=== PATIENT | male | born 1950 | race Caucasian/White ===

== ENCOUNTER → 2017-09-08 | Outpatient (CLI) | payer OTHER, MEDICARE | LOC: CIMAGING 07:10 | PROVIDERS: ATTEND Internal Medicine Endocrinology, Diabetes & Metabolism | DX: R10.30 Lower abdominal pain, unspecified (principal); K40.90 Unilateral inguinal hernia, without obstruction or gangrene, not specified as recurrent | CPT/HCPCS: 76882-PO ==

== ENCOUNTER 2017-10-23 10:28 | Observation (INO) | payer OTHER, MEDICARE ==
[2017-10-23] MEDS ORDERED: PANTOPRAZOLE SODIUM 80 MG in NS 100 ML IV ONE ×2 (10:54→12:00)
[2017-10-23 11:27] LABS: % IMMATURE GRANULYOCYTES 0.4 % (0.0-1.1); ABSOLUTE IMMATURE GRANULOCYTES 0.04 10^3/uL (0.00-0.10); ADD DIFF? NO; ADD MORPH? NO; ADD SCAN? NO; ATYPICAL LYMPHOCYTE FLAG 0 (0-99); FRAGMENT RBC FLAG 0 (0-99); HEMATOCRIT 32.5 % (40.0-51.0); HEMOGLOBIN 11.1 g/dL (13.7-17.5); LEFT SHIFT FLG 10 (0-99); LIPEMIA HEMOLYSIS FLAG 90 (0-99); MEAN CELL HEMOGLOBIN 33.5 pg (27.9-34.1); MEAN CELL HEMOGLOBIN CONCENTR. 34.2 g/dL (32.4-36.7); MEAN CELL VOLUME 98.2 fL (81.5-99.8); MEAN PLATELET VOLUME 9.6 fL (8.7-11.7); PLATELET CLUMPS FLAG 0 (0-99); PLATELET COUNT 128 10^3/uL (150-400); RED BLOOD CELL COUNT 3.31 10^6/uL (4.40-6.38); RED CELL DISTRIBUTION WIDTH 15.1 % (11.5-15.2)
[2017-10-23 11:37] LABS: INR 1.03 (0.83-1.16); PROTIME(PATIENT) 13.7 SEC (12.0-15.0)
[2017-10-23 11:38] LABS: APTT 22.1 SEC (23.0-38.0)
[2017-10-23 11:41] LABS: ALANINE AMINOTRANSFERASE 32 IU/L (21-72); ALBUMIN 3.5 g/dL (3.5-5.0); ALKALINE PHOSPHATASE 47 IU/L (38-126); ANION GAP 15 mEq/L (8-16); ASPARTATE AMINOTRANSFERASE 22 IU/L (17-59); BILIRUBIN,TOTAL 0.5 mg/dL (0.1-1.4); BILIRUBIN-CONJUGATED 0.2 mg/dL (0.0-0.5); BILIRUBIN-UNCONJUGATED 0.3 mg/dL (0.0-1.1); CALCIUM 9.2 mg/dL (8.5-10.4); CARBON DIOXIDE 22 mEq/l (22-31); CHLORIDE 103 mEq/L (97-110); CREATININE 1.4 mg/dL (0.7-1.3); GLOMERULAR FILTRATION RATE 50; GLUCOSE 93 mg/dL (70-100); POTASSIUM 4.6 mEq/L (3.5-5.2); SODIUM 140 mEq/L (134-144); TOTAL PROTEIN 6.3 g/dL (6.3-8.2)
[2017-10-23 12:23] LABS: COLOR YELLOW; LEUKOCYTE ESTERASE,URINE NEGATIVE (NEGATIVE); NITRITE,URINE NEGATIVE (NEGATIVE); PH,URINE 5.5 (5.0-7.5)
[2017-10-23 12:32] LABS: RBC,URINE NONE SEEN /hpf (0-3); WBC,URINE NONE SEEN /hpf (0-3)
[2017-10-23] MEDS ORDERED: PANTOPRAZOLE SODIUM 40 MG VIAL IVP ONE (12:57)
--- NOTE | 2017-10-23 13:05 | EDPHY ---
H & P Time Seen by Provider: 10/23/17 10:54 HPI/ROS: HPI Black stool. 67-year-old male by private vehicle with his . I received a call from his primary care physician Dr. Davies. The patient has a history of esophageal and colon cancer. He has a colostomy. He had an uncomplicated right inguinal hernia repair done on by his general surgeon at [facility] named Dr. Henao. He reports having black stool output in his colostomy bag starting about 24 hr ago. He does have a prior history of a gastrointestinal bleed which resulted in bright red blood in his colostomy bag 1-[address] Yusuf performed endoscopy on him and his bleeding was attributed to an ischemic colitis. He denies any significant abdominal pain. He has not had any vomiting. No lightheadedness. ROS: Constitutional: No fever, no chills. No weakness. Eyes: No discharge. No changes in vision. ENT: No sore throat. No nasal congestion or rhinorrhea. Respiratory: No cough. No shortness of breath. Cardiac: No chest pain, no palpitations. Gastrointestinal: No abdominal pain, no vomiting, no diarrhea. Genitourinary: No hematuria. No dysuria or increased frequency with urination. Musculoskeletal: No back pain. No neck pain. No myalgias or arthralgias. Skin: No rashes. Neurological: No headache. No focal weakness or altered sensation. Past medical history: As above. No history of chronic NSAID use. Social history: Here with his . Nonsmoker. No alcohol. Physical Exam: General Appearance: Alert, no distress. This patient is responding to questions appropriately and in full sentences. This patient appears well- hydrated and well-nourished. Eyes: Pupils equal and round no pallor or injection. No lid edema, erythema or injection. Respiratory: There are no retractions, lungs are clear to auscultation with good air movement bilaterally. Cardiovascular: Regular rate and rhythm. No murmur. Gastrointestinal: Abdomen is soft , mildly distended, left mid abdominal colostomy insertion site is clean and dry without evidence of infection, there is black tarry stool in the colostomy collection bag, he has swollen right inguinal area consistent with recent surgery, there is no associated warmth or erythema. There is ecchymosis that migrates down into his testicles which are ecchymotic and swollen but nontender, bowel sounds normal. No focal tenderness at McBurney's point. No Vasquez sign. Neurological: Motor sensory function is grossly intact. Cranial nerves are normal. Gait is normal. Skin: Warm and dry, no rashes. Musculoskeletal: Neck is supple and nontender. Extremities are symmetrical. All joints range without pain or impingement. Psychiatric: No agitation. No depression. Database: EKG: Imaging: Procedures: Emergency department course: Vital signs reviewed and are normal. IV x2 placed. Patient typed and screened. He was started on IV normal saline with 500 cc to be given over the next hour. He was started on IV Protonix 80 mg bolus followed by a Protonix drip. Stool from colostomy bag is Hemoccult positive. 1:10 p.m., spoke with hospitalist, Dr. Belinda Valerio. She accepts this patient for admission. 1:15 p.m., spoke with on-call endodontic assistant Dr. Meghana Cooper, he or 1 of his partners will consult on this patient after admission. Patient was admitted to the floor under the care of Dr. Valerio in stable condition. Differential Diagnosis: The differential diagnosis on this patient includes but is not limited to gastrointestinal bleeding. Perforated peptic ulcer unlikely. This represents a partial list of diagnoses considered. These considerations are based on history, physical exam, past history, reassessment and diagnostic testing. Smoking Status: Never smoked Constitutional: Initial Vital Signs Temperature (C) 36.6 C 10/23/17 10:36 Heart Rate 62 10/23/17 10:36 Respiratory Rate 16 10/23/17 10:36 Blood Pressure 105/73 10/23/17 10:36 O2 Sat (%) 96 10/23/17 10:36 O2 Delivery Mode Room Air Allergies/Adverse Reactions: adhesive tape Allergy (Verified 10/23/17 10:45) Home Medications: Medication Instructions Recorded Cetirizine HCl [ZYRTEC] 10 mg PO DAILY 05/25/16 Cholecalciferol Vit D3 [Vitamin D3 2,000 units PO DAILY 05/25/16 2000 units tab (OTC)] Diphenoxylate HCl/Atrop Sulf 2 tab PO Q6 PRN 05/25/16 [Lomotil Tab (*)] FLUoxetine [Prozac 20 MG (*)] 60 mg PO DAILY 05/25/16 Finasteride [Proscar 5 MG (*)] 5 mg PO DAILY 05/25/16 Herbals/Supplements -Info Only 1 ea PO DAILY 05/25/16 Metoprolol Succinate 100 mg PO DAILY 05/25/16 Multivitamins [Multivitamin (*)] 1 each PO DAILY 05/25/16 Pantoprazole Sodium [Protonix 40mg 40 mg PO BIDAC 05/25/16 (*)] Promethazine HCl [Phenergan 25mg 25 mg PO Q12 PRN 05/25/16 (*)] Tamsulosin HCl [Flomax 0.4 MG (*)] 0.8 mg PO DAILY 05/25/16 Valacyclovir HCl [Valtrex] 1,000 mg PO BID PRN 05/25/16 Valsartan [Diovan] 320 mg PO DAILY 05/25/16 Zolpidem Tartrate [Ambien 10 mg] 10 mg PO HS 05/25/16 valACYclovir [Valtrex (*)] 500 mg PO DAILY 05/25/16 Ranitidine HCl 150 mg PO BID 10/23/17 ZOLMitriptan [Zomig Zmt] 5 mg PO Q2 PRN 10/23/17 clonAZEPAM [Klonopin] 0.5 - 1 mg PO BID PRN 10/23/17 clonIDINE [Catapres (*)] 0.1 mg PO BID 10/23/17 oxyCODONE IR [Oxycodone Ir (*)] 5 mg PO Q4 PRN 10/23/17 Acetaminophen [Tylenol 325mg (*)] 650 mg PO Q4HRS PRN tab 10/24/17 Medical Decision Making - Data Points Laboratory Results: Laboratory Results 10/23/17 11:10 10/23/17 11:10 Microbiology Results: MICROBIOLOGY 10/23/17 11:59 Unspecified Urine Culture - Preliminary Medications Given: Discontinued Medications Acetaminophen (Tylenol) 650 mg PO Q4HRS PRN PRN Reason: Pain, Mild/Fever, Can Take PO Stop: 04/21/18 13:13 Last Admin: 10/24/17 09:10 Dose: 650 mg Cetirizine HCl (Zyrtec) 10 mg PO DAILY CAITLIN Stop: 04/22/18 08:59 Last Admin: 10/24/17 09:51 Dose: Not Given Cholecalciferol (Vitamin D) 2,000 units PO DAILY [facility] Stop: 04/22/18 08:59 Last Admin: 10/24/17 09:57 Dose: Not Given Famotidine (Pepcid) 20 mg PO BID CAITLIN Stop: 04/21/18 20:59 Last Admin: 10/24/17 09:58 Dose: Not Given Fentanyl (Sublimaze) 175 mcg IVP .STK-MED ONE Stop: 10/23/17 16:23 Last Admin: 10/23/17 16:22 Dose: 175 mcg Finasteride (Proscar) 5 mg PO DAILY [facility] Stop: 04/22/18 08:59 Last Admin: 10/24/17 09:58 Dose: Not Given Fluoxetine HCl (Prozac) 60 mg PO DAILY [facility] Stop: 04/22/18 08:59 Last Admin: 10/24/17 09:58 Dose: Not Given Hydromorphone HCl (Dilaudid) 0.5 mg IVP EDNOW ONE Stop: 10/23/17 13:33 Last Admin: 10/23/17 13:52 Dose: 0.5 mg Pantoprazole Sodium 80 mg/ (Sodium Chloride) 100 mls @ 10 mls/hr IV Q10H ONE Stop: 10/23/17 20:53 Last Admin: 10/23/17 12:03 Dose: Not Given Pantoprazole Sodium 80 mg/ (Sodium Chloride) 100 mls @ 10 mls/hr IV EDNOW ONE Stop: 10/23/17 21:59 Last Admin: 10/23/17 11:56 Dose: 100 mls Metoprolol Succinate (Toprol Xl) 100 mg PO DAILY [facility] Stop: 04/22/18 08:59 Last Admin: 10/24/17 09:17 Dose: Not Given Midazolam HCl (Versed) 7 mg IVP .STK-MED ONE Stop: 10/23/17 16:24 Last Admin: 10/23/17 16:23 Dose: 7 mg Multivitamins (Tab-A-Bam) 1 each PO DAILY [facility] Stop: 04/22/18 08:59 Last Admin: 10/24/17 09:58 Dose: Not Given Oxycodone HCl (Oxycodone Ir) 5 mg PO Q4 PRN PRN Reason: Pain, Breakthrough Stop: 11/02/17 16:24 Last Admin: 10/24/17 09:10 Dose: 5 mg Pantoprazole Sodium (Protonix) 80 mg IVP EDNOW ONE Stop: 10/23/17 12:58 Last Admin: 10/23/17 13:24 Dose: 80 mg Pantoprazole Sodium (Protonix) 40 mg PO BIDAC CAITLIN Stop: 04/21/18 17:29 Last Admin: 10/24/17 09:09 Dose: 40 mg Tamsulosin HCl (Flomax) 0.8 mg PO DAILY CAITLIN Stop: 04/22/18 08:59 Last Admin: 10/24/17 09:58 Dose: Not Given Valacyclovir HCl (Valtrex) 500 mg PO DAILY CAITLIN Stop: 11/23/17 08:59 Last Admin: 10/24/17 09:58 Dose: Not Given Zolpidem Tartrate (Ambien) 10 mg PO HS [facility] Stop: 04/21/18 20:59 Last Admin: 10/23/17 21:30 Dose: 10 mg Departure - Departure Disposition: [facility] Inpatient Acute Clinical Impression: Gastrointestinal bleeding, Anemia
[2017-10-23] MEDS ORDERED: ONDANSETRON 4 MG/2 ML VIAL IVP PRN (13:14)
[2017-10-23] MEDS ORDERED: ONDANSETRON DISINTEGRATING 4 MG TAB PO PRN (13:14)
[2017-10-23] MEDS ORDERED: NS 1,000 ML IV SCH (13:15)
[2017-10-23] MEDS ORDERED: HYDROmorphONE/DILAUDID 1 MG/ML INJ IVP ONE (13:32)
--- NOTE | 2017-10-23 14:26 | PDHOSCONS ---
Hospitalist Consult Hospitalist Consult: GASTROENTEROLOGY CONSULT H & P Stated Complaint: BLACK STOOL, HERNIA SURGERY 10/21 BRUISING SPREADING HPI/ROS: I had the pleasure of seeing Freddy today in consultation. I was asked by Dr. Gaspar to consult regarding the chief complain of dark ostomy output. Patient reports he has been in his usual state of health until the last 24- 48hrs. He has noted darker, and more frequent, output into his ostomy. He has a prior hx of gi blood loss, from ischemic colitis, 18 months ago. He denies nausea and abdominal pain. He reports no fatigue or dizziness. He does have some malaise and weakness. In addition he has had increase right groin swelling and pain, he is POD#3 from right inguinal hernia repair. His past medical history is notable for rectal cancer and esophageal cancer for which he has undergone partial colectomy with ostomy as well as partial esophagectomy with gastric pull up. The most recent of these diagnosis was the esophageal cancer, in 2010. His colon cancer surgery was in the . He denies recent NSAID use. Source: Patient, Old records Exam Limitations: No limitations - Personal History Current Tetanus Diphtheria and Acellular Pertussis (TDAP): Yes Tetanus Vaccine Date: < 10 YEARS - Medical/Surgical History Hx Asthma: No Hx Chronic Respiratory Disease: No Hx Diabetes: No Hx Cardiac Disease: No Hx Renal Disease: No Hx Cirrhosis: No Hx Alcoholism: No Hx HIV/AIDS: No Hx Splenectomy or Spleen Trauma: No Other PMH: COLORECTAL 1994 AND ESOPHAGEAL CANCER 2010/COLOSTOMY, - Family History Significant Family History: No: Asthma, Heart disease, Lung disease - Social History Smoking Status: Never smoked Constitutional: Initial Vital Signs Temperature (C) 36.6 C 10/23/17 10:36 Heart Rate 62 10/23/17 10:36 Respiratory Rate 16 10/23/17 10:36 Blood Pressure 105/73 10/23/17 10:36 O2 Sat (%) 96 10/23/17 10:36 O2 Delivery Mode Room Air Allergies/Adverse Reactions: adhesive tape Allergy (Verified 10/23/17 10:45) Home Medications: Medication Instructions Recorded Cetirizine HCl [ZYRTEC] 10 mg PO DAILY 05/25/16 Cholecalciferol Vit D3 [Vitamin D3 2,000 units PO DAILY 05/25/16 2000 units tab (OTC)] Diphenoxylate HCl/Atrop Sulf 2 tab PO Q6 PRN 05/25/16 [Lomotil Tab (*)] FLUoxetine [Prozac 20 MG (*)] 60 mg PO DAILY 05/25/16 Finasteride [Proscar 5 MG (*)] 5 mg PO DAILY 05/25/16 Herbals/Supplements -Info Only 1 ea PO DAILY 05/25/16 Metoprolol Succinate 100 mg PO DAILY 05/25/16 Multivitamins [Multivitamin (*)] 1 each PO DAILY 05/25/16 Pantoprazole Sodium [Protonix 40mg 40 mg PO BIDAC 05/25/16 (*)] Promethazine HCl [Phenergan 25mg 25 mg PO Q12 PRN 05/25/16 (*)] Tamsulosin HCl [Flomax 0.4 MG (*)] 0.8 mg PO DAILY 05/25/16 Valacyclovir HCl [Valtrex] 1,000 mg PO BID PRN 05/25/16 Valsartan [Diovan] 320 mg PO DAILY 05/25/16 Zolpidem Tartrate [Ambien 10 mg] 10 mg PO HS 05/25/16 valACYclovir [Valtrex (*)] 500 mg PO DAILY 05/25/16 Ibuprofen [Motrin (*)] 400 mg PO BID PRN 10/23/17 Ranitidine HCl 150 mg PO BID 10/23/17 ZOLMitriptan [Zomig Zmt] 5 mg PO Q2 PRN 10/23/17 clonAZEPAM [Klonopin] 0.5 - 1 mg PO BID PRN 10/23/17 clonIDINE [Catapres (*)] 0.1 mg PO BID 10/23/17 oxyCODONE IR [Oxycodone Ir (*)] 5 mg PO Q4 PRN 10/23/17 Assessment & Plan Assessment: Melena and Anemia - possible GI bleed (Acute) - also possible H/H fallen in post-op status from recent hernia surgery ( patient admits to some increased bruising) and dark stool is non-diagnostic. - if GI bleed, UGI and LGI sources possible. Small bowel sources could be considered as well. Plan: 1. npo, except sips/chips/meds 2. PPI IV BID 3. follow H/H 4. follow stool outpt 5. prep for EGD today, and if negative prep for colonoscopy tomorrow 6. consider additional w/u pending the above 7. low threshold for abdominal imaging, given post op status, to evaluate for groin hematoma - will follow, call with questions Lab Data & Imaging Review 10/23/17 11:10 10/23/17 11:10 WBC 9.72 10^3/uL (3.80-9.50) H 10/23/17 11:10 RBC 3.31 10^6/uL (4.40-6.38) L 10/23/17 11:10 Hgb 11.1 g/dL (13.7-17.5) L 10/23/17 11:10 Hct 32.5 % (40.0-51.0) L 10/23/17 11:10 MCV 98.2 fL (81.5-99.8) 10/23/17 11:10 MCH 33.5 pg (27.9-34.1) 10/23/17 11:10 MCHC 34.2 g/dL (32.4-36.7) 10/23/17 11:10 RDW 15.1 % (11.5-15.2) 10/23/17 11:10 Plt Count 128 10^3/uL (150-400) L 10/23/17 11:10 MPV 9.6 fL (8.7-11.7) 10/23/17 11:10 Neut % (Auto) 67.8 % (39.3-74.2) 10/23/17 11:10 Lymph % (Auto) 20.0 % (15.0-45.0) 10/23/17 11:10 [place] % (Auto) 11.2 % (4.5-13.0) 10/23/17 11:10 Eos % (Auto) 0.3 % (0.6-7.6) L 10/23/17 11:10 Baso % (Auto) 0.3 % (0.3-1.7) 10/23/17 11:10 Nucleat RBC Rel Count 0.0 % (0.0-0.2) 10/23/17 11:10 Absolute Neuts (auto) 6.59 10^3/uL (1.70-6.50) H 10/23/17 11:10 Absolute Lymphs (auto) 1.94 10^3/uL (1.00-3.00) 10/23/17 11:10 Absolute Monos (auto) 1.09 10^3/uL (0.30-0.80) H 10/23/17 11:10 Absolute Eos (auto) 0.03 10^3/uL (0.03-0.40) 10/23/17 11:10 Absolute Basos (auto) 0.03 10^3/uL (0.02-0.10) 10/23/17 11:10 Absolute Nucleated RBC 0.00 10^3/uL (0-0.01) 10/23/17 11:10 Immature Gran % 0.4 % (0.0-1.1) 10/23/17 11:10 Immature Gran # 0.04 10^3/uL (0.00-0.10) 10/23/17 11:10 PT 13.7 SEC (12.0-15.0) 10/23/17 11:10 INR 1.03 (0.83-1.16) 10/23/17 11:10 APTT 22.1 SEC (23.0-38.0) L 10/23/17 11:10 Sodium 140 mEq/L (134-144) 10/23/17 11:10 Potassium 4.6 mEq/L (3.5-5.2) 10/23/17 11:10 Chloride 103 mEq/L (97-110) 10/23/17 11:10 Carbon Dioxide 22 mEq/l (22-31) 10/23/17 11:10 Anion Gap 15 mEq/L (8-16) 10/23/17 11:10 BUN 34 mg/dL (7-23) H 10/23/17 11:10 Creatinine 1.4 mg/dL (0.7-1.3) H 10/23/17 11:10 Estimated GFR 50 10/23/17 11:10 Glucose 93 mg/dL (70-100) 10/23/17 11:10 Calcium 9.2 mg/dL (8.5-10.4) 10/23/17 11:10 Total Bilirubin 0.5 mg/dL (0.1-1.4) 10/23/17 11:10 Conjugated Bilirubin 0.2 mg/dL (0.0-0.5) 10/23/17 11:10 Unconjugated Bilirubin 0.3 mg/dL (0.0-1.1) 10/23/17 11:10 AST 22 IU/L (17-59) 10/23/17 11:10 ALT 32 IU/L (21-72) 10/23/17 11:10 Alkaline Phosphatase 47 IU/L (38-126) 10/23/17 11:10 Total Protein 6.3 g/dL (6.3-8.2) 10/23/17 11:10 Albumin 3.5 g/dL (3.5-5.0) 10/23/17 11:10 Urine Color YELLOW 10/23/17 11:59 Urine Appearance CLEAR 10/23/17 11:59 Urine pH 5.5 (5.0-7.5) 10/23/17 11:59 Ur Specific [place] 1.010 (1.002-1.030) 10/23/17 11:59 Urine Protein NEGATIVE (NEGATIVE) 10/23/17 11:59 Urine Ketones NEGATIVE (NEGATIVE) 10/23/17 11:59 Urine Blood NEGATIVE (NEGATIVE) 10/23/17 11:59 Urine Nitrate NEGATIVE (NEGATIVE) 10/23/17 11:59 Urine Bilirubin NEGATIVE (NEGATIVE) 10/23/17 11:59 Urine Urobilinogen 0.2 EU (0.2-1.0) 10/23/17 11:59 Ur Leukocyte Esterase NEGATIVE (NEGATIVE) 10/23/17 11:59 Urine RBC NONE SEEN /hpf (0-3) 10/23/17 11:59 Urine WBC NONE SEEN /hpf (0-3) 10/23/17 11:59 Ur Epithelial Cells TRACE /lpf (NONE-1+) 10/23/17 11:59 Urine Glucose NEGATIVE (NEGATIVE) 10/23/17 11:59 Stool Occult Bld Scrn POSITIVE (NEGATIVE) H 10/23/17 10:50 Patient ABO/Rh B POSITIVE 10/23/17 11:10 Antibody Screen NEGATIVE 10/23/17 11:10 Exam Temp Pulse Resp BP Pulse Ox 36.7 C 59 L 18 120/75 96 10/23/17 14:18 10/23/17 14:18 10/23/17 14:18 10/23/17 14:18 10/23/17 14:18 Constitutional: no apparent distress, appears nourished Eyes: PERRL Ears, Nose, Mouth, Throat: moist mucous membranes Cardiovascular: regular rate and rhythym, no murmur, rub, or gallop, systolic murmur Respiratory: No no respiratory distress Gastrointestinal: normoactive bowel sounds, No tenderness Genitourinary: other (scrotum echymoses) Skin: warm Musculoskeletal: full muscle strength Neurologic: AAOx3, No weakness Psychiatric: interacting appropriately Review of Systems Review of Systems: - Review of Systems Constitutional: see HPI EENTM: denies: eye pain Respiratory: denies: cough, shortness of breath Cardiac: denies: no symptoms reported Gastrointestinal/Abdominal: see HPI, abdominal pain Genitourinary: see HPI Musculoskelatal: denies: back pain Skin: see HPI Neurological: no symptoms. denies: anxiety, depressed Hematologic/Lymphatic: no symptoms reported, see HPI Immunologic/allergic: no symptoms reported All Other Systems: Reviewed and Negative
[2017-10-23] MEDS ORDERED: fentaNYL 100 MCG/2 ML INJ ONE (15:51)
[2017-10-23] MEDS ORDERED: MIDAZOLAM 2 MG/2 ML VIAL ONE (15:51)
[2017-10-23] MEDS ORDERED: fentaNYL 100 MCG/2 ML INJ IVP ONE (16:22)
[2017-10-23] MEDS ORDERED: MIDAZOLAM 2 MG/2 ML VIAL IVP ONE ×2 (16:23)
[2017-10-23] MEDS ORDERED: DIPHENOXYLATE/ATROPINE LOMOTIL 1 TAB PO PRN (16:25)
[2017-10-23] MEDS ORDERED: PROMETHAZINE HCL 25 MG TAB PO PRN (16:25)
--- NOTE | 2017-10-23 16:39 | PDGENHP ---
History and Physical - Chief Complaint Acute melena - History of Present Illness Primary care provider Dr. Samuel Primary general surgeon: Dr. Henao Primary braided band assembler: Dr. Schneider HPI: 67 year old male presenting with acute melena characterized as black stool , without any blood, with onset of symptoms 24 hr prior, and duration persistent thereafter. The black stool has been characterized as loose, similar consistency to his normal stool but different in color. He has not had any associated nausea or abdominal pain. He has not had any throat pain or dysphagia. He has had some associated right groin pain and swelling, following his recent hernia repair. He has been taking as needed oxycodone, as well as a total of 800 mg ibuprofen. The combination of these medications has alleviated some of his right groin pain. The patient underwent his hernia repair surgery on 10/21. Prior to that, he had otherwise been feeling well. His normal stool color is brown to green. History Information - Allergies/Home Medication List Allergies/Adverse Reactions: adhesive tape Allergy (Verified 10/23/17 10:45) Home Medications: Cetirizine HCl [ZYRTEC] 10 mg PO DAILY 05/25/16 [Last Taken 10/23/17] Cholecalciferol Vit D3 [Vitamin D3 2000 units tab (OTC)] 2,000 units PO DAILY [Last Taken 10/22/17] Diphenoxylate HCl/Atrop Sulf [Lomotil Tab (*)] 2 tab PO Q6 PRN 05/25/16 [Last Taken Unknown] FLUoxetine [Prozac 20 MG (*)] 60 mg PO DAILY 05/25/16 [Last Taken 10/22/17] Finasteride [Proscar 5 MG (*)] 5 mg PO DAILY 05/25/16 [Last Taken 10/22/17] Herbals/Supplements -Info Only 1 ea PO DAILY 05/25/16 [Last Taken Unknown] Metoprolol Succinate 100 mg PO DAILY 05/25/16 [Last Taken 10/22/17] Multivitamins [Multivitamin (*)] 1 each PO DAILY 05/25/16 [Last Taken 05/24/16] Pantoprazole Sodium [Protonix 40mg (*)] 40 mg PO BIDAC 05/25/16 [Last Taken ] Promethazine HCl [Phenergan 25mg (*)] 25 mg PO Q12 PRN 05/25/16 [Last Taken ] Tamsulosin HCl [Flomax 0.4 MG (*)] 0.8 mg PO DAILY 05/25/16 [Last Taken 10/22/17 ] Valacyclovir HCl [Valtrex] 1,000 mg PO BID PRN 05/25/16 [Last Taken Unknown] Valsartan [Diovan] 320 mg PO DAILY 05/25/16 [Last Taken 10/22/17] Zolpidem Tartrate [Ambien 10 mg] 10 mg PO HS 05/25/16 [Last Taken 10/22/17] valACYclovir [Valtrex (*)] 500 mg PO DAILY 05/25/16 [Last Taken 10/22/17] Ibuprofen [Motrin (*)] 400 mg PO BID PRN 10/23/17 [Last Taken 10/22/17] Ranitidine HCl 150 mg PO BID 10/23/17 [Last Taken 10/22/17] ZOLMitriptan [Zomig Zmt] 5 mg PO Q2 PRN 10/23/17 [Last Taken Unknown] clonAZEPAM [Klonopin] 0.5 - 1 mg PO BID PRN 10/23/17 [Last Taken 10/22/17] clonIDINE [Catapres (*)] 0.1 mg PO BID 10/23/17 [Last Taken 10/22/17] oxyCODONE IR [Oxycodone Ir (*)] 5 mg PO Q4 PRN 10/23/17 [Last Taken 10/22/17] I have personally reviewed and updated: family history, medical history, social history, surgical history - Past Medical History Additional medical history: BPH. Hypertension. OCD. Depression. Seasonal allergies. Ischemic colitis with GI bleed, lower. Remote history of rectal carcinoma 24 years ago. Remote history of esophageal cancer 6 years ago. GERD - Surgical History Additional surgical history: 10/21/2017 right inguinal hernia repair. Esophageal surgery with scarring. Sigmoid colectomy, with ostomy - Family History Additional family history: No family history of stomach or pancreatic cancers, brother and father both had Parkinson's - Social History Smoking Status: Never smoked Alcohol Use: Occasionally Drug Use: None Additional social history: Normally independent in ADLs Review of Systems Review of Systems: ROS: 10pt was reviewed & negative except for what was stated in HPI & below Gastrointestinal: Reports: black stools Muscolosketal: Reports: other (Right inguinal pain) Physical Exam Physical Exam: Temp Pulse Resp BP Pulse Ox 36.7 C 60 14 79/46 L 95 10/23/17 15:35 10/23/17 15:35 10/23/17 16:14 10/23/17 16:11 10/23/17 16:14 Constitutional: no apparent distress, appears nourished, not in pain, uncomfortable, other (Sweaty appearing) Eyes: PERRL, anicteric sclera, EOMI Ears, Nose, Mouth, Throat: moist mucous membranes, hearing normal, ears appear normal, no oral mucosal ulcers Cardiovascular: regular rate and rhythym, no murmur, rub, or gallop, No edema Respiratory: no respiratory distress, no rales or rhonchi, clear to auscultation Gastrointestinal: normoactive bowel sounds, other (Right lower quadrant/ inguinal tenderness), No guarding Skin: other (Ecchymoses and swelling over the right inguinal area, tenderness, no fluctuance) Musculoskeletal: other (Full range of motion right lower extremity without any inducible pain on flexion) Neurologic: AAOx3, sensation intact bilaterally, No weakness Psychiatric: interacting appropriately, not anxious, not encephalopathic, thought process linear Lab Data & Imaging Review 10/23/17 11:10 10/23/17 11:10 WBC 9.72 10^3/uL (3.80-9.50) H 10/23/17 11:10 RBC 3.31 10^6/uL (4.40-6.38) L 10/23/17 11:10 Hgb 11.1 g/dL (13.7-17.5) L 10/23/17 11:10 Hct 32.5 % (40.0-51.0) L 10/23/17 11:10 MCV 98.2 fL (81.5-99.8) 10/23/17 11:10 MCH 33.5 pg (27.9-34.1) 10/23/17 11:10 MCHC 34.2 g/dL (32.4-36.7) 10/23/17 11:10 RDW 15.1 % (11.5-15.2) 10/23/17 11:10 Plt Count 128 10^3/uL (150-400) L 10/23/17 11:10 MPV 9.6 fL (8.7-11.7) 10/23/17 11:10 Neut % (Auto) 67.8 % (39.3-74.2) 10/23/17 11:10 Lymph % (Auto) 20.0 % (15.0-45.0) 10/23/17 11:10 [place] % (Auto) 11.2 % (4.5-13.0) 10/23/17 11:10 Eos % (Auto) 0.3 % (0.6-7.6) L 10/23/17 11:10 Baso % (Auto) 0.3 % (0.3-1.7) 10/23/17 11:10 Nucleat RBC Rel Count 0.0 % (0.0-0.2) 10/23/17 11:10 Absolute Neuts (auto) 6.59 10^3/uL (1.70-6.50) H 10/23/17 11:10 Absolute Lymphs (auto) 1.94 10^3/uL (1.00-3.00) 10/23/17 11:10 Absolute Monos (auto) 1.09 10^3/uL (0.30-0.80) H 10/23/17 11:10 Absolute Eos (auto) 0.03 10^3/uL (0.03-0.40) 10/23/17 11:10 Absolute Basos (auto) 0.03 10^3/uL (0.02-0.10) 10/23/17 11:10 Absolute Nucleated RBC 0.00 10^3/uL (0-0.01) 10/23/17 11:10 Immature Gran % 0.4 % (0.0-1.1) 10/23/17 11:10 Immature Gran # 0.04 10^3/uL (0.00-0.10) 10/23/17 11:10 PT 13.7 SEC (12.0-15.0) 10/23/17 11:10 INR 1.03 (0.83-1.16) 10/23/17 11:10 APTT 22.1 SEC (23.0-38.0) L 10/23/17 11:10 Sodium 140 mEq/L (134-144) 10/23/17 11:10 Potassium 4.6 mEq/L (3.5-5.2) 10/23/17 11:10 Chloride 103 mEq/L (97-110) 10/23/17 11:10 Carbon Dioxide 22 mEq/l (22-31) 10/23/17 11:10 Anion Gap 15 mEq/L (8-16) 10/23/17 11:10 BUN 34 mg/dL (7-23) H 10/23/17 11:10 Creatinine 1.4 mg/dL (0.7-1.3) H 10/23/17 11:10 Estimated GFR 50 10/23/17 11:10 Glucose 93 mg/dL (70-100) 10/23/17 11:10 Calcium 9.2 mg/dL (8.5-10.4) 10/23/17 11:10 Total Bilirubin 0.5 mg/dL (0.1-1.4) 10/23/17 11:10 Conjugated Bilirubin 0.2 mg/dL (0.0-0.5) 10/23/17 11:10 Unconjugated Bilirubin 0.3 mg/dL (0.0-1.1) 10/23/17 11:10 AST 22 IU/L (17-59) 10/23/17 11:10 ALT 32 IU/L (21-72) 10/23/17 11:10 Alkaline Phosphatase 47 IU/L (38-126) 10/23/17 11:10 Total Protein 6.3 g/dL (6.3-8.2) 10/23/17 11:10 Albumin 3.5 g/dL (3.5-5.0) 10/23/17 11:10 Urine Color YELLOW 10/23/17 11:59 Urine Appearance CLEAR 10/23/17 11:59 Urine pH 5.5 (5.0-7.5) 10/23/17 11:59 Ur Specific [place] 1.010 (1.002-1.030) 10/23/17 11:59 Urine Protein NEGATIVE (NEGATIVE) 10/23/17 11:59 Urine Ketones NEGATIVE (NEGATIVE) 10/23/17 11:59 Urine Blood NEGATIVE (NEGATIVE) 10/23/17 11:59 Urine Nitrate NEGATIVE (NEGATIVE) 10/23/17 11:59 Urine Bilirubin NEGATIVE (NEGATIVE) 10/23/17 11:59 Urine Urobilinogen 0.2 EU (0.2-1.0) 10/23/17 11:59 Ur Leukocyte Esterase NEGATIVE (NEGATIVE) 10/23/17 11:59 Urine RBC NONE SEEN /hpf (0-3) 10/23/17 11:59 Urine WBC NONE SEEN /hpf (0-3) 10/23/17 11:59 Ur Epithelial Cells TRACE /lpf (NONE-1+) 10/23/17 11:59 Urine Glucose NEGATIVE (NEGATIVE) 10/23/17 11:59 Stool Occult Bld Scrn POSITIVE (NEGATIVE) H 10/23/17 10:50 Patient ABO/Rh B POSITIVE 10/23/17 11:10 Antibody Screen NEGATIVE 10/23/17 11:10 Assessment & Plan Assessment: 67-year-old male presents with acute upper gastrointestinal hemorrhage Plan: 1. Suspected acute upper gastrointestinal hemorrhage. New problem this provider, further workup indicated. Patient with melena suggestive of upper source, with history of esophageal cancer, but recently reported normal CEA -getting upper endoscopy this afternoon -PPI twice daily -continue monitor hemoglobin level -continue monitor stool output -reviewed outside records including 05/27/[address] Leonel Oconnor, she reports that the patient had bright red blood from his ischemic colitis and lower GI source, which seems to be different in appearance than the current bleed 2. Acute blood loss anemia. Hemoglobin 11.1, previous hemoglobin couple points higher, most likely secondary to his upper GI bleed and potentially his recent inguinal hernia surgery -continue monitor -no indication for blood transfusion at this time 3. Hypertension. Chronic, given patient's postprocedural hypotension, will hold clonidine, hold losartan 4. Acute kidney injury. Secondary to hypovolemia in the setting of bleeding, give IV fluid overnight -repeat serum creatinine level in a.m., monitor I&O 5. BPH. Chronic, continue home medications 6. Chronic benzodiazepine dependency. Continue home Klonopin Diet. Regular following procedure, advance as tolerated Prophylaxis. Moderate risk patient, SCDs, hold pharm given bleeding Code. Full Disposition. Anticipated discharge is 10/24/2017, pending further workup and stabilization of condition outlined above.
[2017-10-23] MEDS ORDERED: clonazePAM 0.5 MG TAB PO PRN (16:45)
[2017-10-23] MEDS ORDERED: valACYclovir 500 MG TAB PO PRN (16:45)
[2017-10-23] MEDS: PANTOPRAZOLE SODIUM 40 MG TAB PO SCH (17:45)
[2017-10-23] MEDS: ACETAMINOPHEN 325 MG TAB PO PRN ×2 (17:51→22:48)
[2017-10-23] MEDS: oxyCODONE IR 5 MG TAB PO PRN ×2 (17:51→22:48)
[2017-10-23 20:13] VITALS: RESP 16
[2017-10-23] MEDS ORDERED: ZOLPIDEM TARTRATE 5 MG TAB PO SCH (21:00)
[2017-10-23] MEDS: FAMOTIDINE 20 MG TAB PO SCH (21:31)
[2017-10-24] MEDS: oxyCODONE IR 5 MG TAB PO PRN ×2 (04:20→09:10)
[2017-10-24] MEDS: ACETAMINOPHEN 325 MG TAB PO PRN ×2 (04:20→09:10)
[2017-10-24 04:51] LABS: % IMMATURE GRANULYOCYTES 0.4 % (0.0-1.1); ABSOLUTE IMMATURE GRANULOCYTES 0.03 10^3/uL (0.00-0.10); ADD DIFF? NO; ADD MORPH? NO; ADD SCAN? NO; ATYPICAL LYMPHOCYTE FLAG 10 (0-99); FRAGMENT RBC FLAG 0 (0-99); HEMATOCRIT 29.2 % (40.0-51.0); HEMOGLOBIN 9.8 g/dL (13.7-17.5); LEFT SHIFT FLG 0 (0-99); LIPEMIA HEMOLYSIS FLAG 80 (0-99); MEAN CELL HEMOGLOBIN CONCENTR. 33.6 g/dL (32.4-36.7); MEAN CELL VOLUME 98.3 fL (81.5-99.8); MEAN PLATELET VOLUME 9.6 fL (8.7-11.7); PLATELET CLUMPS FLAG 0 (0-99); PLATELET COUNT 104 10^3/uL (150-400); RED BLOOD CELL COUNT 2.97 10^6/uL (4.40-6.38); RED CELL DISTRIBUTION WIDTH 15.5 % (11.5-15.2)
[2017-10-24 04:57] VITALS: TEMP 97.9
[2017-10-24 05:02] LABS: ALANINE AMINOTRANSFERASE 27 IU/L (21-72); ALBUMIN 2.8 g/dL (3.5-5.0); ALKALINE PHOSPHATASE 41 IU/L (38-126); ANION GAP 8 mEq/L (8-16); ASPARTATE AMINOTRANSFERASE 15 IU/L (17-59); BILIRUBIN,TOTAL 0.4 mg/dL (0.1-1.4); CALCIUM 8.1 mg/dL (8.5-10.4); CARBON DIOXIDE 25 mEq/l (22-31); CHLORIDE 110 mEq/L (97-110); CREATININE 0.9 mg/dL (0.7-1.3); GLOMERULAR FILTRATION RATE > 60; GLUCOSE 89 mg/dL (70-100); POTASSIUM 4.3 mEq/L (3.5-5.2); SODIUM 143 mEq/L (134-144); TOTAL PROTEIN 5.4 g/dL (6.3-8.2)
[2017-10-24 07:17] VITALS: BP 129/77; PULSE 60; O2SAT 97
[2017-10-24] MEDS ORDERED: METOPROLOL SUCCINATE XR 100 MG TAB PO SCH (09:00)
[2017-10-24] MEDS ORDERED: Herbals/Supplements -Info Only PO SCH (09:00)
[2017-10-24] MEDS: TAMSULOSIN HCL 0.4 MG CAP PO SCH ×2 (09:09→09:58)
[2017-10-24] MEDS: FLUoxetine 20 MG CAP PO SCH ×2 (09:09→09:58)
[2017-10-24] MEDS: CETIRIZINE 10 MG TAB PO SCH ×2 (09:09→09:51)
[2017-10-24] MEDS: PANTOPRAZOLE SODIUM 40 MG TAB PO SCH (09:09)
[2017-10-24] MEDS: FAMOTIDINE 20 MG TAB PO SCH ×2 (09:10→09:58)
[2017-10-24] MEDS: MULTIVITAMINS 1 EACH TAB PO SCH ×2 (09:10→09:58)
[2017-10-24] MEDS: CHOLECALCIFEROL VIT D3 2,000 UNITS TAB/CAP PO SCH ×2 (09:10→09:57)
[2017-10-24] MEDS: valACYclovir 500 MG TAB PO SCH ×2 (09:10→09:58)
[2017-10-24] MEDS: FINASTERIDE 5 MG TAB PO SCH ×2 (09:10→09:58)
--- NOTE | 2017-10-24 10:58 | PDDCSUM ---
Discharge Summary Discharge Summary: DISCHARGE SUMMARY FOLLOW-UP ITEMS: Repeat outpatient hemoglobin DATE OF ADMISSION: 10/23/2017 DATE OF DISCHARGE: 10/24/2017 DISCHARGE DIAGNOSES: 1. Acute upper gastrointestinal hemorrhage 2. Acute blood loss anemia 3. Chronic hypertension 4. Acute kidney injury 5. Acute hypotension 6. Chronic BPH 7. Chronic benzodiazepine dependency 8. Postoperative hematoma 9. Esophagitis at the anastomosis CONSULTATIONS: Gastroenterology PROCEDURES / IMAGING: Upper endoscopy demonstrating esophagitis at the anastomosis, no active bleeding , no ulcerations CHIEF COMPLAINT: Acute melena SUBJECTIVE: Patient has had no subsequent melena, he continues to have some right groin discomfort PHYSICAL EXAM ON DISCHARGE: Systolic blood pressure is 129, heart rate 60, afebrile overnight, satting on room air, alert awake oriented x3, no apparent distress, right groin has mild swelling, no overt fluctuance, ecchymosis and tenderness, the testicles are densely ecchymotic, no fluctuance, no tenderness, incision site is non erythematous, mildly tender, abdomen is soft, no tenderness, ostomy bag in place , no melena LABS ON DISCHARGE: Hemoglobin 9.8, white blood cell count 7800, platelets [id number], potassium 4.3, creatinine 0.9, BUN 32, liver panel unremarkable HOSPITAL COURSE BY PROBLEM: The patient presented with an acute upper gastrointestinal hemorrhage resulting in acute blood loss anemia in the setting of esophagitis at his gastroesophageal anastomosis. This resulted in his chief complaint of melena, and resultant hypovolemia with resultant acute kidney injury. The patient received IV fluids, and his serum creatinine level down trended to baseline. He received upper endoscopy which identify the source of his bleed, but with no active bleeding no cautery or clips were needed. Dr. ladan Ho recommended ongoing use of PPI twice daily, and the patient will continue his H2 talha twice daily as well. I recommended outpatient gastroenterology follow-up as well as outpatient hemoglobin level monitoring. Close hemoglobin level decline from 11.1-9.8 from the time of admission, I suspect this is most likely secondary to delusional effect without any additional blood loss after his endoscopy. The patient did experience acute hypotension most likely secondary to anesthesia and pain medications, and this has resolved without intervention. We did recommend that he hold his home antihypertensive medications and resume them on 10/25. Regarding his right groin, he does have a postoperative hematoma which appears to be relatively small and stable. He does have discomfort in this area, and this is most likely secondary to the patient not following the surgeon's recommendations of icing his groin postoperatively. The patient's and I have counseled him regarding this, and the patient will attempt to ice his groin. I recommended that he use Tylenol and oxycodone for pain relief, and avoid NSAIDs, given his GI bleed as well as ecchymoses in the right inguinal area. The patient does report that postoperatively he experienced some acute urinary retention, but this has not been an issue during this hospitalization. He has been continued on his home BPH medications, as well as home benzodiazepine and his oxycodone for pain relief. I recommended ambulation, advancing his activity as tolerates, and following up with general surgeon on schedule. If he experiences any recurrent melena, I recommended that he contact [facility] and have an outpatient hemoglobin level done as well as an outpatient evaluation. DISCHARGE MEDICATIONS: Please see official discharge medication reconciliation sheet in chart , continue home medications, discontinue ibuprofen, utilize Tylenol as needed for pain. DISCHARGE INSTRUCTIONS: Please follow up with PCP and general surgeon as scheduled, have labs performed per your previous schedule.
--- NOTE | 2017-10-24 11:13 | ASMTCMCOM ---
CM Note CM Note Notes: Chart reviewed. Patient lives independent with his . Medically cleared for discharge. No needs identified. CM available should needs arise. Date Signed: 10/24/2017 11:14 AM Electronically Signed By:Kayla Reyna RN
--- NOTE | 2017-10-24 16:24 | ASDISCHSUM ---
Discharge Information Plan Status:Home with No Needs Medically Cleared to Leave:10/23/2017 Discharge Date:10/24/2017 11:11 AM CM D/C Disposition:Home, Routine, Self-Care ADT D/C Disposition:Home, Routine, Self-Care Projected Discharge Date:10/24/2017 11:11 AM Transportation at D/C: Discharge Delay Reason: Follow-Up Date:10/24/2017 11:11 AM Discharge Slot: Final Diagnosis: Placement Information Patient Contact Information Contact Name:MICHELLE Relationship: Address:[address] City:[place] Alternate Phone: State/Zip Code:[place] [address] Email: Financial Information Financial Class: Primary Plan Desc:MEDICARE OUTPATIENT Primary Plan Number:[id number] Secondary Plan Desc:[employer]/MDR SUPPLEMENT Secondary Plan Number:[id number] Assessment Information BC CM Progress Note CM Note CM Note Notes: Chart reviewed. Patient lives independent with his . Medically cleared for discharge. No needs identified. CM available should needs arise. Date Signed: 10/24/2017 11:14 AM Electronically Signed By:Kayla Reyna RN Intervention Information
--- NOTE | 2017-10-26 07:56 | GIREPORT ---
[facility] - Endoscopy Department Patient Name: Freddy Lee Procedure Date: 10/23/2017 3:39 PM Patient Type: Inpatient Attending MD/ ER Physician: Meghana Cooper MD Procedure: Upper GI endoscopy Indications: Acute post hemorrhagic anemia, Melena Providers: Meghana Cooper MD Medicines: Fentanyl 175 micrograms IV, Midazolam 7 mg IV Complications: No immediate complications. Description of Procedure: After obtaining informed consent, the endoscope was passed under direct vision. Throughout the procedure, the patient's blood pressure, pulse, and oxygen saturations were monitored continuously. The Endoscope was intro duced through the mouth, and advanced to the third part of duodenum. After obtaining informed consent, the endoscope was passed under direct visio n. Throughout the procedure, the patient's blood pressure, pulse, and oxyg en saturations were monitored continuously.The upper GI endoscopy was accomplished without difficulty. The patient tolerated the procedure we ll. Moderate Sedation: Moderate (conscious) sedation was administered by the endoscopy nurse luz maria reynaga supervised by the endoscopist. The following parameters were monitored: oxygen saturation, heart rate, blood pressure, and response to care. To juni physician intraservice time was 13 minutes. Findings: An esophago-gastric anastomosis was found in the lower third of the esophagus. LA Grade D (one or more mucosal breaks involving at least 75% of esopha geal circumference) esophagitis with no bleeding was found in the lower thir d of the esophagus. Biopsies were taken with a cold forceps for histology. The entire examined stomach was normal. The examined duodenum was normal. Estimated Blood Loss: Estimated blood loss: none. Post Op Diagnosis: - An esophago-gastric anastomosis was found. - LA Grade D esophagitis. Biopsied. - Normal stomach. - Normal examined duodenum. Recommendation: - [facility] to [facility] care. - Advance diet as tolerated. - Use a proton pump inhibitor PO BID for 12 weeks. - Await pathology results. - Observe patient's clinical course. - Check hemoglobin daily. - The findings and recommendations were discussed with the patient's fa selvin. - The findings and recommendations were discussed with the referring physician. Attending Participation: I personally performed the entire procedure. Meghana Cooper MD Meghana Cooper MD 10/23/2017 4:24:39 PM This report has been signed electronicallyDaus Allison MD Number of Addenda: 0 Note Initiated On: 10/23/2017 3:39 PM [email or web address]
== END 2017-10-24 11:11 | disposition home or self-care (01) ==
LOC: F3E 14:10
PROVIDERS: ADMIT Internal Medicine; ATTEND Internal Medicine
PROC: 0DB48ZX Excision of Esophagogastric Junction, Via Natural or Artificial Opening Endoscopic, Diagnostic (ICD-10-PCS; principal; 2017-10-23 15:45)
DX: K92.2 Gastrointestinal hemorrhage, unspecified (principal); K20.9 Esophagitis, unspecified; D62 Acute posthemorrhagic anemia; L76.32 Postprocedural hematoma of skin and subcutaneous tissue following other procedure; N17.9 Acute kidney failure, unspecified; I95.9 Hypotension, unspecified; I10 Essential (primary) hypertension; N40.0 Benign prostatic hyperplasia without lower urinary tract symptoms; F13.20 Sedative, hypnotic or anxiolytic dependence, uncomplicated; K55.9 Vascular disorder of intestine, unspecified; K21.9 Gastro-esophageal reflux disease without esophagitis; E86.1 Hypovolemia; F32.9 Major depressive disorder, single episode, unspecified; Z85.01 Personal history of malignant neoplasm of esophagus; Z85.048 Personal history of other malignant neoplasm of rectum, rectosigmoid junction, and anus; Z98.0 Intestinal bypass and anastomosis status; Z93.3 Colostomy status
CPT/HCPCS: 43239; G0378; J1170; J2250; J3010; 96365

== ENCOUNTER → 2018-07-14 | Outpatient (CLI) | payer OTHER | LOC: FIMAGING 08:53 | PROVIDERS: ATTEND Internal Medicine Endocrinology, Diabetes & Metabolism | DX: Z13.6 Encounter for screening for cardiovascular disorders (principal) | CPT/HCPCS: 0126T ==